=== PATIENT | male | born 1965 | race Caucasian/White ===

== ENCOUNTER 2017-07-06 18:16 | Emergency (ER) | payer MEDICAID, OTHER ==
[2017-07-06] MEDS: ONDANSETRON (ODT) 4 MG TAB ODT (20:00)
[2017-07-06] MEDS: HYDROCODONE/APAP (10/325) TAB PO (20:00)
== END 2017-07-06 20:50 | disposition home or self-care (01) ==
LOC: FTE 18:16
DX: S92.342A Displaced fracture of fourth metatarsal bone, left foot, initial encounter for closed fracture (principal); S92.332A Displaced fracture of third metatarsal bone, left foot, initial encounter for closed fracture; S92.322A Displaced fracture of second metatarsal bone, left foot, initial encounter for closed fracture; W10.9XXA Fall (on) (from) unspecified stairs and steps, initial encounter; Y92.9 Unspecified place or not applicable
CPT/HCPCS: 73590; 73630-LT; 99283-25